=== PATIENT | female | born 1980 ===

== ENCOUNTER 2017-05-21 08:22 | Emergency (ER) | payer BC ==
[2017-05-21 08:22] VITALS: BMI 24.3
[2017-05-21 08:29] VITALS: BP 122/64; PULSE 72; RESP 16; TEMP 98.1; O2SAT 97
--- NOTE | 2017-05-21 09:00 | ED PDOC ---
Arrival/HPI - General Chief Complaint: Allergic Reaction Time Seen by Provider: 05/21/17 08:56 Historian: Patient - History of Present Illness Narrative History of Present Illness (Text): 05/21/17 09:11 A 37 year old female presents to the emergency department complaining of right ear itchiness for the past several days. Patient reports that now left ear is starting to itch and feels like it may be a rash. Reports topical Bendaryl and Cortisone with no relief. Patient denies any shortness of breath, fever, vision changes, congestion or any other complaints at this time. PMD: Dr. Javi Bruner Time/Duration: < week Symptom Onset: Sudden Symptom Course: Unchanged Activities at Onset: Rest Context: Home Past Medical History - Provider Review Nursing Documentation Reviewed: Yes - Cardiac Hx Cardiac Disorders: No - Pulmonary Hx Respiratory Disorders: No - Neurological Hx Neurological Disorder: No - HEENT Hx HEENT Disorder: No - Renal Hx Renal Disorder: No - Endocrine/Metabolic Hx Endocrine Disorders: No - Hematological/Oncological Hx Blood Disorders: No - Integumentary Hx Dermatological Disorder: No - Musculoskeletal/Rheumatological Hx Musculoskeletal Disorders: No - Gastrointestinal Hx Gastrointestinal Disorders: No - Genitourinary/Gynecological Hx Genitourinary Disorders: No - Psychiatric Hx Psychophysiologic Disorder: Yes Hx Anxiety: Yes Hx Depression: Yes Hx Substance Use: No - Surgical History Other/Comment: breast augmentation Family/Social History - Physician Review Nursing Documentation Reviewed: Yes Family/Social History: No Known Family HX Smoking Status: Never Smoked Hx Alcohol Use: No Hx Substance Use: No Allergies/Home Meds Allergies/Adverse Reactions: Allergies No Known Allergies Allergy (Verified 05/21/17 08:29) Home Medications: Home Meds Medication Instructions Recorded Confirmed Escitalopram [Lexapro] 10 mg PO DAILY 07/31/15 05/21/17 lamoTRIgine [Lamictal] 50 mg PO DAILY 05/21/17 05/21/17 Review of Systems - Physician Review All systems were reviewed & negative as marked: Yes Physical Exam - Physical Exam Narrative Physical Exam (Text): 05/21/17 09:09 - Review of Systems Constitutional: Normal. absent: Fatigue, Weight Change, Fevers Eyes: Normal ENT: bilateral ear itchiness, denies sore throat Respiratory: Normal. absent: SOB, Cough, Sputum Cardiovascular: absent: Chest Pain, Palpitations, Syncope Gastrointestinal: Normal. absent: Abdominal Pain, Diarrhea, Nausea, Vomiting Genitourinary: Normal. absent: Dysuria, Frequency, Hematuria, vaginal bleeding Musculoskeletal: Normal. absent: Arthralgias, Back Pain, Neck Pain Skin: bilateral ear redness Neurological: absent: Focal Weakness Endocrine: Normal Hemo/Lymphatic: Normal Psychiatric: No suicidal or homicidal ideations Physical exam Patient appears age appropriate in no distress, speaking full sentences without difficulty - Systems Exam Head: Present: Atraumatic, Normocephalic Pupils: Present: PERRL Extroacular Muscles: Present: EOMI Conjunctiva: Present: Normal Ears: b/l ear canals and TMs normal in appearance. Mouth: Present: Moist Mucous Membranes Neck: Present: Normal Range of Motion. No: MIDLINE TENDERNESS, Paraspinal Tenderness Respiratory/Chest: Present: Clear to Auscultation, Good Air Exchange. No: Respiratory Distress, Accessory Muscle Use, Tachypneic Cardiovascular: Present: Regular Rate and Rhythm, Normal S1, S2, Peripheal Pulses Present. No: Murmurs Abdomen: Present: Normal Bowel Sounds. No: Tenderness, Distention, Peritoneal Signs, Rebound, Guarding Back: Present: Normal Inspection. No: Midline Tenderness, Paraspinal Tenderness Upper Extremity: Present: Normal Inspection. No: Cyanosis, Edema Lower Extremity: Present: Normal Inspection. No: Edema Neurological: Present: GCS=15, Speech Normal, cranial nerves II through XII fully intact with no cerebellar abnormality, neurosensory fully intact. No focal neurological deficits. Skin: bilateral ears with mild eczematous appearing rash, no signs of overlying infection Lymphatic: Present: OX3, NI, NC Psychiatric: Present: Alert, Oriented x 3, Normal Insight, Normal Concentration Vital Signs Reviewed: Yes Vital Signs Temp Pulse Resp BP Pulse Ox 05/21/17 08:26 98.1 F 72 16 122/64 97 Temperature: Afebrile Blood Pressure: Normal Pulse: Regular Respiratory Rate: Normal Appearance: Positive for: Well-Appearing, Non-Toxic, Comfortable Pain Distress: None Mental Status: Positive for: Alert and Oriented X 3 Medical Decision Making ED Course and Treatment: 05/21/17 09:08 Impression: A 37 year old female with bilateral ear itchiness. On physical exam, bilateral ears with mild exematous appearing rash. Plan: -- Reassess and disposition Prior Visits: Notes and results from previous visits were reviewed. Patient was last seen in the emergency department on 07/31/15 for evaluation of depression. Progress Notes: On re-evaluation, patient is in no acute distress. 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 Patient in agreement with plan to be discharged home. Patient is stable for discharge. Patient was instructed to return if symptoms worsen or new concerning symptoms arise. - Scribe Statement The provider has reviewed the documentation as recorded by the Eva Patton Provider Scribe Attestation: All medical record entries made by the Scribe were at my direction and personally dictated by me. I have reviewed the chart and agree that the record accurately reflects my personal performance of the history, physical exam, medical decision making, and the department course for this patient. I have also personally directed, reviewed, and agree with the discharge instructions and disposition. Disposition/Present on Arrival - Present on Arrival Any Indicators Present on Arrival: No History of DVT/PE: No History of Uncontrolled Diabetes: No Urinary Catheter: No History of Decub. Ulcer: No History Surgical Site Infection Following: None - Disposition Have Diagnosis and Disposition been Completed?: Yes Diagnosis: Rash Disposition: HOME/ ROUTINE Disposition Time: 08:57 Patient Plan: Discharge Condition: GOOD Discharge Instructions (ExitCare): Acute Rash (ED), Dermatitis (ED) Additional Instructions: PLEASE RETURN TO THE EMERGENCY DEPARTMENT FOR NEW OR WORSENING SYMPTOMS. RETURN RIGHT AWAY IF YOU CANNOT FOLLOW UP WITH YOUR PRIMARY CARE DOCTOR, CLINIC, OR SPECIALIST IN 1-2 DAYS. Prescriptions: Methylprednisolone [Medrol Dose Pack (21 tabs)] 4 mg PO DAILY #21 mg Referrals: Ghazala Jesus MD [Staff Provider] - Follow up with primary Forms: [employer] ([place]yan), WORK NOTE
== END 2017-05-21 09:21 | disposition home or self-care (01) ==
LOC: ED 08:22
DX: R21 Rash and other nonspecific skin eruption (principal)